=== PATIENT | male | born 1955 | race Caucasian/White ===

== ENCOUNTER 2017-03-09 09:39 | Emergency (ER) | payer OTHER ==
[2017-03-09 09:52] VITALS: BP 189/94
[2017-03-09] MEDS ORDERED: Acetaminop/Codeine 30 MG TAB* 1 TAB (300 MG/30 MG) PO ONE (10:32)
--- NOTE | 2017-03-09 11:02 | UC ---
[facility] HPI - History of Current Complaint Chief Complaint: UCDentalProblem Stated Complaint: DENTAL PAIN Time Seen by Provider: 03/09/17 10:27 Hx Obtained From: Patient Onset/Duration: Gradual Onset - has had decayed L lower molar for many months, states he cracked it in past. over past week, pain has developed and getting wprse everyday despite ibuprofen 800mg Severity: Severe Pain Scale Used: 0-10 Numeric - 8 Aggravating: Heat, Cold, Chewing Alleviating: Nothing - Allergies/Home Medications Allergies/Adverse Reactions: Allergies Allergy/AdvReac Type Severity Reaction Status Date / Time No Known Allergies Allergy Verified 03/09/17 09:52 Home Medications: Home Medications Atorvastatin* [Lipitor 20 MG*] 20 mg PO DAILY 03/09/17 [History Confirmed ] Ibuprofen TAB* [Advil TAB*] 3 tab PO TID PRN 03/09/17 [History Confirmed ] Left Over Antibiotic 1 tab PO TID 03/09/17 [History Confirmed 03/09/17] Lisinopril TAB* [Prinivil TAB 10 MG*] 10 mg PO DAILY 03/09/17 [History Confirmed 03/09/17] PMH/Surg Hx/FS Hx/Imm Hx Endocrine History: Dyslipidemia Cardiovascular History: Hypertension - Surgical History Surgical History: None - Family History Known Family History: Positive: Hypertension - Social History Occupation: Retired Lives: With Family Alcohol Use: Daily Substance Use Type: None Smoking Status (MU): Former Smoker Review of Systems Constitutional: Negative Respiratory: Negative Cardiovascular: Negative Psychological: Negative All Other Systems Reviewed And Are Negative: Yes Physical Exam Triage Information Reviewed: Yes Appearance: Well-Appearing, Well-Nourished, Pain Distress - holding L lower jaw Vital Signs: Initial Vital Signs Temp 99.2 F 03/09/17 09:48 Pulse 92 03/09/17 09:48 Resp 18 03/09/17 09:48 BP 189/94 03/09/17 09:48 Pulse Ox 98 03/09/17 09:48 Vital Signs Reviewed: Yes ENT Exam: Normal Dental: Positive: Gross Decay/Caries @. Negative: Cervical Lymphadenopathy Neck exam: Normal Respiratory Exam: Normal Cardiovascular Exam: Normal Neurological Exam: Normal Psychological Exam: Normal Skin Exam: Normal Dental Complaint Course/Dx - Differential Dx/Diagnosis Differential Diagnosis/Dx: Dental Abscess, Dental Caries, Fractured Tooth Provider Diagnoses: dental fracture Lower 3rd molar. dental abscess Discharge - Discharge Plan Condition: Stable Disposition: HOME Prescriptions: Acetaminop/Codeine 30 MG TAB* [Tylenol/Codeine 30 MG TAB*] 1 - 2 tab PO Q6H PRN #24 tab MDD 8 PRN Reason: Pain Penicillin VK TAB* [Penicillin VK 250 mg Tab*] 250 mg PO QID #40 tab Patient Education Materials: Dental Abscess (ED) Additional Instructions: Use medications as directed and follow-up with dentist ANIYA
== END 2017-03-09 11:08 | disposition home or self-care (01) ==
LOC: UCEAST 09:39
DX: S02.5XXA Fracture of tooth (traumatic), initial encounter for closed fracture (principal); K04.7 Periapical abscess without sinus; X58.XXXA Exposure to other specified factors, initial encounter; Y93.9 Activity, unspecified; Y99.9 Unspecified external cause status
CPT/HCPCS: 99212; A9270-GY; G0463